=== PATIENT | female | born 2000 | race Caucasian/White ===

== ENCOUNTER 2021-11-10 10:26 | Outpatient (CLI) | payer BC | END 2021-11-10 10:27 | disposition home or self-care (01) | LOC: BICRAD 10:26 | PROVIDERS: ATTEND Family Medicine | DX: J20.9 Acute bronchitis, unspecified (principal) | CPT/HCPCS: 71046 ==

== ENCOUNTER 2024-06-17 10:00 | Outpatient (CLI) | payer BC | END 2024-06-17 12:00 | disposition home or self-care (01) | LOC: ULT 10:00 | PROVIDERS: ATTEND Family Medicine | DX: R10.84 Generalized abdominal pain (principal); K82.8 Other specified diseases of gallbladder | CPT/HCPCS: 76700 ==